=== PATIENT | male | born 1980 | race Caucasian/White ===

== ENCOUNTER 2017-10-27 19:34 | Emergency (ER) | payer SELFPAY ==
[~2017-10-27] VITALS: Ht 165.1 cm; Wt 83.9 kg
[2017-10-27 19:40] VITALS: Ht 165.1 cm; Wt 83.9 kg
[2017-10-27 21:37] VITALS: BP 116/68
== END 2017-10-27 21:38 | disposition home or self-care (01) ==
LOC: ED 19:34
DX: S61.431A Puncture wound without foreign body of right hand, initial encounter (principal); F12.10 Cannabis abuse, uncomplicated; X58.XXXA Exposure to other specified factors, initial encounter; Y93.89 Activity, other specified; Y92.89 Other specified places as the place of occurrence of the external cause; Y99.8 Other external cause status
CPT/HCPCS: 90715

== ENCOUNTER 2018-04-16 13:11 | Emergency (ER) | payer SELFPAY ==
[~2018-04-16] VITALS: Ht 165.1 cm; Wt 79.8 kg
[2018-04-16 13:13] VITALS: Ht 165.1 cm; Wt 79.8 kg
[2018-04-16 17:13] VITALS: BP 128/89
== END 2018-04-16 17:13 | disposition home or self-care (01) ==
LOC: ED 13:11
DX: S05.02XA Injury of conjunctiva and corneal abrasion without foreign body, left eye, initial encounter (principal); Z86.19 Personal history of other infectious and parasitic diseases; W22.8XXA Striking against or struck by other objects, initial encounter; Y93.89 Activity, other specified; Y92.89 Other specified places as the place of occurrence of the external cause; Y99.8 Other external cause status